=== PATIENT | male | born 1950 | race African-American/Black ===

== ENCOUNTER 2020-10-21 08:29 | Inpatient (IN) | payer MEDICARE, MEDICAID ==
[~2020-10-21] VITALS: Ht 185.4 cm; Wt 69.9 kg
[2020-10-21] MEDS ORDERED: SODIUM CHLORIDE 0.9% 1,000 ML IV ONE (08:45)
[2020-10-21 09:32] LABS: CHLORIDE 114 mEq/L (98-107)
[2020-10-21 09:33] LABS: BASOPHILS % 0.6 % (0.0-2.0); EOSINOPHILS % 1.3 % (0.0-5.0); HEMATOCRIT. 31.6 % (42.0-52.0); HEMOGLOBIN. 10.2 g/dL (14.0-18.0); LYMPHOCYTES % 7.1 % (20.0-50.0); MEAN CORPUSCULAR VOLUME 77.3 fL (80.0-94.0); MEAN PLATELET VOLUME 7.2 fl (7.4-10.4); MONOCYTES % 12.8 % (2.0-8.0); NEUTROPHILS % 78.2 % (40.0-76.0); PLATELET 216 x1000/uL (130-400); RED BLOOD CELL COUNT 4.08 mill/uL (4.7-6.1); RED CELL DISTRIBUTION WIDTH 19.3 % (11.6-14.6)
[2020-10-21 09:37] LABS: INR 1.3; PROTHROMBIN TIME 13.7 sec (9.6-11.0)
[2020-10-21] MEDS ORDERED: POTASSIUM CHLORIDE INJ 40 MEQ in DEXT 5% WATER 500 ML IV ONE (11:15)
[2020-10-21] MEDS ORDERED: DEXT 5%/0.9% NACL 1,000 ML IV SCH (18:45)
[2020-10-21] MEDS ORDERED: DEXTROSE 50% WATER 50ML SYRINGE IV PRN (18:45)
[2020-10-21] MEDS ORDERED: ONDANSETRON HCL 4MG/2ML INJ IV PRN (18:45)
[2020-10-21] MEDS ORDERED: PIPERACILLIN/TAZ 3.375G PREMIX 50 ML IV SCH (18:45)
[2020-10-21] MEDS: INSULIN LISPRO 100 UNITS/ML SUBCUT SCH (21:00)
[2020-10-21] MEDS: BLOOD SUGAR DIAGNOSTIC STRIP TEST SCH (21:16)
[2020-10-21 22:50] VITALS: BP 156/81
[2020-10-21] MEDS: PANTOPRAZOLE SODIUM 40 MG/VIAL IV SCH (23:25)
[2020-10-22] VITALS: BP 156/71
[2020-10-22 00:43] LABS: HEMATOCRIT. 33.3 % (42.0-52.0); HEMOGLOBIN. 10.4 g/dL (14.0-18.0); MEAN CORPUSCULAR HEMOGLOBIN 24.4 pg (28.0-32.0); MEAN CORPUSCULAR VOLUME 78.3 fL (80.0-94.0); MEAN PLATELET VOLUME 7.5 fl (7.4-10.4); PLATELET 232 x1000/uL (130-400); RED BLOOD CELL COUNT 4.25 mill/uL (4.7-6.1); RED CELL DISTRIBUTION WIDTH 19.4 % (11.6-14.6)
[2020-10-22 01:08] LABS: CHLORIDE 117 mEq/L (98-107)
[2020-10-22 04:00] VITALS: BP 165/74
[2020-10-22] MEDS: PIPERACILLIN/TAZOBACTAM 2.25 G in DEXTROSE 5% WATER 50 ML IV SCH ×4 (04:03→22:10)
[2020-10-22] MEDS: INSULIN LISPRO 100 UNITS/ML SUBCUT SCH ×4 (06:37→21:00)
[2020-10-22] MEDS: BLOOD SUGAR DIAGNOSTIC STRIP TEST SCH ×4 (06:37→21:00)
[2020-10-22 08:00] VITALS: BP 151/57
[2020-10-22] MEDS: PANTOPRAZOLE SODIUM 40 MG/VIAL IV SCH ×2 (08:53→22:10)
[2020-10-22] MEDS: ACETAMINOPHEN 325MG TABLET PO PRN (08:54)
[2020-10-22] MEDS ORDERED: PERMETHRIN 5% CREAM 60GM TOP ONE (09:00)
[2020-10-22 09:31] LABS: PLATELET ESTIMATE NORMAL
[2020-10-22 12:00] VITALS: BP 167/73
[2020-10-22] MEDS: METOCLOPRAMIDE HCL 10MG/2ML VIAL IV SCH ×2 (12:01→18:18)
[2020-10-22] MEDS: DEXTROSE 5% WATER 1,000 ML IV SCH (12:01)
[2020-10-22 16:00] VITALS: BP 156/72
[2020-10-22] MEDS: SODIUM HYPOCHLORITE 0.125% 473ML SOLUTION TOP SCH (18:18)
[2020-10-22 20:00] VITALS: BP 156/63
[2020-10-23] VITALS (7 sets, daily range): BP systolic 155–169; BP diastolic 59–85
[2020-10-23] MEDS: METOCLOPRAMIDE HCL 10MG/2ML VIAL IV SCH ×4 (00:04→18:06)
[2020-10-23] MEDS: PIPERACILLIN/TAZOBACTAM 2.25 G in DEXTROSE 5% WATER 50 ML IV SCH ×4 (04:07→22:38)
[2020-10-23] MEDS: BLOOD SUGAR DIAGNOSTIC STRIP TEST SCH ×4 (05:53→20:12)
[2020-10-23] MEDS: INSULIN LISPRO 100 UNITS/ML SUBCUT SCH ×4 (05:53→20:12)
[2020-10-23 06:30] LABS: BASOPHILS % 0.2 % (0.0-2.0); EOSINOPHILS % 9.5 % (0.0-5.0); HEMATOCRIT. 30.1 % (42.0-52.0); HEMOGLOBIN. 9.8 g/dL (14.0-18.0); LYMPHOCYTES % 9.9 % (20.0-50.0); MEAN CORPUSCULAR HEMOGLOBIN 25.2 pg (28.0-32.0); MEAN CORPUSCULAR VOLUME 77.2 fL (80.0-94.0); MEAN PLATELET VOLUME 7.2 fl (7.4-10.4); MONOCYTES % 8.6 % (2.0-8.0); NEUTROPHILS % 71.8 % (40.0-76.0); PLATELET 200 x1000/uL (130-400); RED CELL DISTRIBUTION WIDTH 18.8 % (11.6-14.6)
[2020-10-23 06:50] LABS: FERRITIN 313 ng/mL (22-322)
[2020-10-23 06:53] LABS: FOLIC ACID (FOLATE) SERUM >20 ng/mL ng/mL (>5.38)
[2020-10-23 07:03] LABS: VITAMIN B12 SERUM 1972 pg/mL (211-911)
[2020-10-23] MEDS: PANTOPRAZOLE SODIUM 40 MG/VIAL IV SCH ×2 (11:15→22:38)
[2020-10-23] MEDS: DEXTROSE 5% WATER 1,000 ML IV SCH (11:15)
[2020-10-23] MEDS: SODIUM HYPOCHLORITE 0.125% 473ML SOLUTION TOP SCH (11:16)
[2020-10-23] MEDS ORDERED: POTASSIUM CHLORIDE 20MEQ TABLET SR PO NR (12:30)
[2020-10-23] MEDS: AMLODIPINE 10MG TABLET PO SCH (13:11)
[2020-10-23] MEDS ORDERED: GUAIFENESIN-DM 200MG-20MG/10ML UDC PO PRN (19:15)
[2020-10-24] VITALS (7 sets, daily range): BP systolic 140–163; BP diastolic 47–65
[2020-10-24] MEDS: METOCLOPRAMIDE HCL 10MG/2ML VIAL IV SCH ×4 (00:28→16:04)
[2020-10-24] MEDS: SODIUM CHLORIDE 0.45% 1,000 ML IV SCH ×2 (00:29→16:09)
[2020-10-24] MEDS: PIPERACILLIN/TAZOBACTAM 2.25 G in DEXTROSE 5% WATER 50 ML IV SCH ×4 (05:25→22:00)
[2020-10-24] MEDS: DEXTROSE 5% WATER 1,000 ML IV SCH (05:25)
[2020-10-24] MEDS: INSULIN LISPRO 100 UNITS/ML SUBCUT SCH ×4 (07:10→22:00)
[2020-10-24] MEDS: BLOOD SUGAR DIAGNOSTIC STRIP TEST SCH ×4 (07:21→21:00)
[2020-10-24 07:42] LABS: BASOPHILS % 0.9 % (0.0-2.0); EOSINOPHILS % 8.6 % (0.0-5.0); HEMATOCRIT. 29.3 % (42.0-52.0); HEMOGLOBIN. 9.3 g/dL (14.0-18.0); MEAN CORPUSCULAR HEMOGLOBIN 24.7 pg (28.0-32.0); MEAN CORPUSCULAR VOLUME 77.8 fL (80.0-94.0); MEAN PLATELET VOLUME 7.8 fl (7.4-10.4); MONOCYTES % 8.7 % (2.0-8.0); NEUTROPHILS % 73.8 % (40.0-76.0); PLATELET 205 x1000/uL (130-400); RED BLOOD CELL COUNT 3.77 mill/uL (4.7-6.1); RED CELL DISTRIBUTION WIDTH 19.2 % (11.6-14.6)
[2020-10-24] MEDS: PANTOPRAZOLE SODIUM 40 MG/VIAL IV SCH ×2 (08:49→22:00)
[2020-10-24] MEDS: AMLODIPINE 10MG TABLET PO SCH (08:49)
[2020-10-24] MEDS: SODIUM HYPOCHLORITE 0.125% 473ML SOLUTION TOP SCH (08:49)
[2020-10-24] MEDS: POTASSIUM CHLORIDE 20MEQ TABLET SR PO SCH (09:54)
[2020-10-25] VITALS: BP 149/77
[2020-10-25] MEDS: METOCLOPRAMIDE HCL 10MG/2ML VIAL IV SCH ×4 (00:59→18:03)
[2020-10-25] MEDS: DEXTROSE 5% WATER 1,000 ML IV SCH ×2 (01:04→22:08)
[2020-10-25 04:00] VITALS: BP 123/69
[2020-10-25] MEDS: PIPERACILLIN/TAZOBACTAM 2.25 G in DEXTROSE 5% WATER 50 ML IV SCH ×4 (04:41→21:36)
[2020-10-25] MEDS: BLOOD SUGAR DIAGNOSTIC STRIP TEST SCH ×4 (06:00→21:24)
[2020-10-25] MEDS: INSULIN LISPRO 100 UNITS/ML SUBCUT SCH ×4 (07:10→21:55)
[2020-10-25 08:00] VITALS: BP 150/72
[2020-10-25] MEDS: POTASSIUM CHLORIDE 20MEQ TABLET SR PO SCH (09:02)
[2020-10-25] MEDS: AMLODIPINE 10MG TABLET PO SCH (09:03)
[2020-10-25] MEDS: SODIUM HYPOCHLORITE 0.125% 473ML SOLUTION TOP SCH (09:03)
[2020-10-25] MEDS: PANTOPRAZOLE SODIUM 40 MG/VIAL IV SCH ×2 (09:26→21:36)
[2020-10-25 12:00] VITALS: BP 155/59
[2020-10-25 16:00] VITALS: BP 160/63
[2020-10-25] MEDS: SODIUM CHLORIDE 0.45% 1,000 ML IV SCH (16:26)
[2020-10-25 20:00] VITALS: BP 149/43
[2020-10-26] VITALS: BP 128/53
[2020-10-26] MEDS: METOCLOPRAMIDE HCL 10MG/2ML VIAL IV SCH ×4 (00:29→17:35)
[2020-10-26] MEDS: PIPERACILLIN/TAZOBACTAM 2.25 G in DEXTROSE 5% WATER 50 ML IV SCH ×4 (03:39→21:53)
[2020-10-26 04:00] VITALS: BP 153/62
[2020-10-26 06:25] LABS: BASOPHILS % 0.2 % (0.0-2.0); EOSINOPHILS % 6.6 % (0.0-5.0); HEMATOCRIT. 29.1 % (42.0-52.0); HEMOGLOBIN. 9.2 g/dL (14.0-18.0); LYMPHOCYTES % 7.9 % (20.0-50.0); MEAN CORPUSCULAR HEMOGLOBIN 24.4 pg (28.0-32.0); MEAN CORPUSCULAR VOLUME 77.6 fL (80.0-94.0); MEAN PLATELET VOLUME 7.7 fl (7.4-10.4); MONOCYTES % 9.5 % (2.0-8.0); NEUTROPHILS % 75.8 % (40.0-76.0); PLATELET 218 x1000/uL (130-400); RED BLOOD CELL COUNT 3.75 mill/uL (4.7-6.1); RED CELL DISTRIBUTION WIDTH 20.1 % (11.6-14.6)
[2020-10-26] MEDS: ACETAMINOPHEN 325MG TABLET PO PRN (06:29)
[2020-10-26] MEDS: BLOOD SUGAR DIAGNOSTIC STRIP TEST SCH ×4 (06:53→21:53)
[2020-10-26] MEDS: INSULIN LISPRO 100 UNITS/ML SUBCUT SCH ×4 (06:54→22:17)
[2020-10-26] MEDS: PANTOPRAZOLE SODIUM 40 MG/VIAL IV SCH ×2 (08:44→21:53)
[2020-10-26] MEDS: AMLODIPINE 10MG TABLET PO SCH (08:44)
[2020-10-26] MEDS: POTASSIUM CHLORIDE 20MEQ TABLET SR PO SCH (08:44)
[2020-10-26] MEDS: SODIUM HYPOCHLORITE 0.125% 473ML SOLUTION TOP SCH (08:45)
[2020-10-26 12:00] VITALS: BP 149/58
[2020-10-26 16:00] VITALS: BP 150/55
[2020-10-26] MEDS: DEXTROSE 5% WATER 1,000 ML IV SCH (17:34)
[2020-10-26 20:00] VITALS: BP 142/68
[2020-10-26] MEDS: SODIUM CHLORIDE 0.45% 1,000 ML IV SCH (22:21)
[2020-10-27] VITALS: BP 139/62
[2020-10-27] MEDS: METOCLOPRAMIDE HCL 10MG/2ML VIAL IV SCH ×5 (00:05→23:14)
[2020-10-27] MEDS: PIPERACILLIN/TAZOBACTAM 2.25 G in DEXTROSE 5% WATER 50 ML IV SCH (03:35)
[2020-10-27 04:00] VITALS: BP 113/65
[2020-10-27] MEDS: INSULIN LISPRO 100 UNITS/ML SUBCUT SCH ×4 (06:03→21:00)
[2020-10-27] MEDS: BLOOD SUGAR DIAGNOSTIC STRIP TEST SCH ×4 (06:09→21:00)
[2020-10-27 07:02] LABS: BASOPHILS % 0.2 % (0.0-2.0); EOSINOPHILS % 6.6 % (0.0-5.0); HEMATOCRIT. 30.3 % (42.0-52.0); HEMOGLOBIN. 9.8 g/dL (14.0-18.0); MEAN CORPUSCULAR HEMOGLOBIN 25.1 pg (28.0-32.0); MEAN CORPUSCULAR VOLUME 77.4 fL (80.0-94.0); MEAN PLATELET VOLUME 7.8 fl (7.4-10.4); MONOCYTES % 9.6 % (2.0-8.0); NEUTROPHILS % 75.6 % (40.0-76.0); PLATELET 226 x1000/uL (130-400); RED BLOOD CELL COUNT 3.91 mill/uL (4.7-6.1); RED CELL DISTRIBUTION WIDTH 19.8 % (11.6-14.6)
[2020-10-27 08:00] VITALS: BP 144/61
[2020-10-27] MEDS: AMLODIPINE 10MG TABLET PO SCH (09:19)
[2020-10-27] MEDS: PANTOPRAZOLE SODIUM 40 MG/VIAL IV SCH ×2 (09:19→22:45)
[2020-10-27] MEDS: POTASSIUM CHLORIDE 20MEQ TABLET SR PO SCH (09:19)
[2020-10-27] MEDS: SODIUM HYPOCHLORITE 0.125% 473ML SOLUTION TOP SCH (09:20)
[2020-10-27] MEDS: DEXTROSE 5% WATER 1,000 ML IV SCH (11:51)
[2020-10-27 12:00] VITALS: BP 147/59
[2020-10-27 16:00] VITALS: BP 140/50
[2020-10-27 20:00] VITALS: BP 151/65
[2020-10-27] MEDS ORDERED: POTASSIUM CHLORIDE INJ 40 MEQ in DEXT 5% WATER 250 ML IV NR (23:00)
[2020-10-28] VITALS: BP 154/66
[2020-10-28 04:00] VITALS: BP 170/69
[2020-10-28 05:43] LABS: BASOPHILS % 0.3 % (0.0-2.0); EOSINOPHILS % 7.3 % (0.0-5.0); HEMATOCRIT. 28.5 % (42.0-52.0); HEMOGLOBIN. 9.3 g/dL (14.0-18.0); LYMPHOCYTES % 7.7 % (20.0-50.0); MEAN CORPUSCULAR HEMOGLOBIN 25.2 pg (28.0-32.0); MEAN CORPUSCULAR VOLUME 77.4 fL (80.0-94.0); MEAN PLATELET VOLUME 7.9 fl (7.4-10.4); MONOCYTES % 8.8 % (2.0-8.0); NEUTROPHILS % 75.9 % (40.0-76.0); PLATELET 231 x1000/uL (130-400); RED BLOOD CELL COUNT 3.68 mill/uL (4.7-6.1); RED CELL DISTRIBUTION WIDTH 20.1 % (11.6-14.6)
[2020-10-28] MEDS: BLOOD SUGAR DIAGNOSTIC STRIP TEST SCH ×4 (06:27→21:00)
[2020-10-28] MEDS: INSULIN LISPRO 100 UNITS/ML SUBCUT SCH ×4 (06:28→21:00)
[2020-10-28] MEDS ORDERED: INSULIN REGULAR (HUMULIN R) 300UNITS/3ML VIAL SUBCUT ONE (06:30)
[2020-10-28] MEDS ORDERED: DEXTROSE 50% WATER 50ML SYRINGE IV SCH (06:45)
[2020-10-28] MEDS ORDERED: INSULIN REGULAR (HUMULIN R) UD 100 UNITS/ML SYR IV SCH (07:00)
[2020-10-28 07:46] LABS: HEMATOCRIT. 29.8 % (42.0-52.0); HEMOGLOBIN. 9.6 g/dL (14.0-18.0); MEAN CORPUSCULAR HEMOGLOBIN 24.9 pg (28.0-32.0); MEAN CORPUSCULAR VOLUME 77.3 fL (80.0-94.0); MEAN PLATELET VOLUME 7.3 fl (7.4-10.4); PLATELET 226 x1000/uL (130-400); RED BLOOD CELL COUNT 3.86 mill/uL (4.7-6.1); RED CELL DISTRIBUTION WIDTH 20.6 % (11.6-14.6)
[2020-10-28 07:49] LABS: CHLORIDE 114 mEq/L (98-107)
[2020-10-28 08:00] VITALS: BP 161/61
[2020-10-28] MEDS ORDERED: SODIUM POLYSTYRENE SULFONATE 15 G/60 ML BOT PO NR (08:00)
[2020-10-28] MEDS ORDERED: SODIUM POLYSTYRENE SULFONATE 15 G/60 ML BOT PO SCH (08:00)
[2020-10-28] MEDS ORDERED: SODIUM POLYSTYRENE SULFONATE 15 G/60 ML BOT PR SCH (08:00)
[2020-10-28] MEDS: AMLODIPINE 10MG TABLET PO SCH ×2 (09:00→12:23)
[2020-10-28] MEDS ORDERED: KCL 20MEQ/100ML PREMIX 100 ML IV ONE (09:15)
[2020-10-28] MEDS ORDERED: HYDRALAZINE 20MG/ML VIAL IV PRN (09:15)
[2020-10-28] MEDS: PANTOPRAZOLE SODIUM 40 MG/VIAL IV SCH ×2 (09:16→23:33)
[2020-10-28] MEDS: SODIUM HYPOCHLORITE 0.125% 473ML SOLUTION TOP SCH (09:17)
[2020-10-28] MEDS: DEXTROSE 5% WATER 1,000 ML IV SCH (09:18)
[2020-10-28 09:58] LABS: PLATELET ESTIMATE NORMAL
[2020-10-28] MEDS ORDERED: KCL 20MEQ/100ML PREMIX 100 ML IV NR (11:00)
[2020-10-28 12:00] VITALS: BP 160/64
[2020-10-28 16:00] VITALS: BP 125/92
[2020-10-28] MEDS: ACETAMINOPHEN 325MG TABLET PO PRN (16:18)
[2020-10-28 20:00] VITALS: BP 155/71
[2020-10-28] MEDS: METOCLOPRAMIDE HCL 10MG/2ML VIAL IV SCH (23:33)
[2020-10-28] MEDS: HYDRALAZINE HCL 50MG TABLET PO SCH (23:36)
[2020-10-29] VITALS: BP 124/64
[2020-10-29] MEDS: METOCLOPRAMIDE HCL 10MG/2ML VIAL IV SCH ×5 (02:34→17:12)
[2020-10-29 04:00] VITALS: BP 160/73
[2020-10-29] MEDS: DEXTROSE 5% WATER 1,000 ML IV SCH (04:00)
[2020-10-29 05:52] LABS: BASOPHILS % 0.6 % (0.0-2.0); EOSINOPHILS % 5.3 % (0.0-5.0); HEMATOCRIT. 34.1 % (42.0-52.0); LYMPHOCYTES % 8.3 % (20.0-50.0); MEAN CORPUSCULAR HEMOGLOBIN 24.8 pg (28.0-32.0); MEAN CORPUSCULAR VOLUME 77.1 fL (80.0-94.0); MEAN PLATELET VOLUME 7.9 fl (7.4-10.4); MONOCYTES % 9.2 % (2.0-8.0); NEUTROPHILS % 76.6 % (40.0-76.0); PLATELET 282 x1000/uL (130-400); RED BLOOD CELL COUNT 4.42 mill/uL (4.7-6.1); RED CELL DISTRIBUTION WIDTH 20.8 % (11.6-14.6)
[2020-10-29] MEDS: INSULIN LISPRO 100 UNITS/ML SUBCUT SCH ×4 (06:16→21:00)
[2020-10-29] MEDS: BLOOD SUGAR DIAGNOSTIC STRIP TEST SCH ×4 (06:16→20:55)
[2020-10-29 08:00] VITALS: BP 172/83
[2020-10-29] MEDS: PANTOPRAZOLE SODIUM 40 MG/VIAL IV SCH ×2 (09:00→20:55)
[2020-10-29] MEDS: ZINC SULFATE 220 MG ( 50 ) CAPSULE PO SCH (09:10)
[2020-10-29] MEDS: ASCORBIC ACID 500 MG TABLET PO SCH (09:10)
[2020-10-29] MEDS: HYDRALAZINE HCL 50MG TABLET PO SCH ×2 (09:10→20:55)
[2020-10-29] MEDS: SODIUM HYPOCHLORITE 0.125% 473ML SOLUTION TOP SCH (09:11)
[2020-10-29] MEDS: AMLODIPINE 10MG TABLET PO SCH (09:11)
[2020-10-29 12:00] VITALS: BP 110/59
[2020-10-29 16:00] VITALS: BP 126/57
[2020-10-29 20:00] VITALS: BP 137/67
[2020-10-29 20:40] LABS: CLARITY URINE CLEAR (CLEAR); COLOR URINE YELLOW (YELLOW); KETONES URINE NEGATIVE (NEGATIVE); LEUKOCYTE ESTERASE URINE NEGATIVE (NEGATIVE); NITRITE URINE NEGATIVE (NEGATIVE); OCCULT BLOOD URINE 2+ (NEGATIVE); PH URINE 7.5 (4.5-8.0); PROTEIN URINE 1+ (NEGATIVE); UROBILINOGEN URINE 0.2 E.U./dL (0.2-1.0)
[2020-10-30] VITALS: BP 132/54
[2020-10-30] MEDS: METOCLOPRAMIDE HCL 10MG/2ML VIAL IV SCH ×4 (00:34→18:19)
[2020-10-30] MEDS: DEXTROSE 5% WATER 1,000 ML IV SCH ×2 (00:34→22:16)
[2020-10-30 04:00] VITALS: BP 111/48
[2020-10-30] MEDS: BLOOD SUGAR DIAGNOSTIC STRIP TEST SCH ×4 (06:16→21:00)
[2020-10-30] MEDS: INSULIN LISPRO 100 UNITS/ML SUBCUT SCH ×4 (06:17→21:00)
[2020-10-30 06:58] LABS: BASOPHILS % 1.8 % (0.0-2.0); EOSINOPHILS % 7.3 % (0.0-5.0); HEMATOCRIT. 28.7 % (42.0-52.0); HEMOGLOBIN. 9.4 g/dL (14.0-18.0); MEAN CORPUSCULAR HEMOGLOBIN 25.3 pg (28.0-32.0); MEAN CORPUSCULAR VOLUME 76.9 fL (80.0-94.0); MONOCYTES % 7.1 % (2.0-8.0); NEUTROPHILS % 72.8 % (40.0-76.0); RED BLOOD CELL COUNT 3.73 mill/uL (4.7-6.1); RED CELL DISTRIBUTION WIDTH 21.2 % (11.6-14.6)
[2020-10-30] MEDS: PANTOPRAZOLE SODIUM 40 MG/VIAL IV SCH ×2 (09:55→22:16)
[2020-10-30] MEDS: HYDRALAZINE HCL 50MG TABLET PO SCH ×2 (09:56→22:16)
[2020-10-30] MEDS: AMLODIPINE 10MG TABLET PO SCH (09:56)
[2020-10-30] MEDS: ZINC SULFATE 220 MG ( 50 ) CAPSULE PO SCH (09:56)
[2020-10-30] MEDS: SODIUM HYPOCHLORITE 0.125% 473ML SOLUTION TOP SCH (09:58)
[2020-10-30] MEDS: ASCORBIC ACID 500 MG TABLET PO SCH (09:58)
[2020-10-30 12:00] VITALS: BP 133/70
[2020-10-30] MEDS ORDERED: PERMETHRIN 5% CREAM 60GM TOP NR (17:00)
[2020-10-30 17:39] LABS: MEAN PLATELET VOLUME 7.8 fl (7.4-10.4); PLATELET 273 x1000/uL (130-400)
[2020-10-30 20:00] VITALS: BP 136/64
[2020-10-31] VITALS: BP 142/65
[2020-10-31] MEDS: METOCLOPRAMIDE HCL 10MG/2ML VIAL IV SCH ×5 (00:11→23:33)
[2020-10-31 04:00] VITALS: BP 153/53
[2020-10-31] MEDS: BLOOD SUGAR DIAGNOSTIC STRIP TEST SCH ×4 (06:02→21:07)
[2020-10-31] MEDS: INSULIN LISPRO 100 UNITS/ML SUBCUT SCH ×4 (07:10→21:00)
[2020-10-31 08:00] VITALS: BP 146/60
[2020-10-31] MEDS: ASCORBIC ACID 500 MG TABLET PO SCH (09:20)
[2020-10-31] MEDS: ZINC SULFATE 220 MG ( 50 ) CAPSULE PO SCH (09:20)
[2020-10-31] MEDS: HYDRALAZINE HCL 50MG TABLET PO SCH ×2 (09:21→21:07)
[2020-10-31] MEDS: PANTOPRAZOLE SODIUM 40 MG/VIAL IV SCH ×2 (09:22→21:07)
[2020-10-31] MEDS: AMLODIPINE 10MG TABLET PO SCH (09:22)
[2020-10-31] MEDS: SODIUM HYPOCHLORITE 0.125% 473ML SOLUTION TOP SCH (09:23)
[2020-10-31 12:00] VITALS: BP 146/57
[2020-10-31 16:00] VITALS: BP 123/58
[2020-10-31] MEDS: DEXTROSE 5% WATER 1,000 ML IV SCH (17:03)
[2020-10-31 20:00] VITALS: BP 144/56
[2020-11-01] VITALS: BP 139/58
[2020-11-01 04:00] VITALS: BP 144/58
[2020-11-01] MEDS: BLOOD SUGAR DIAGNOSTIC STRIP TEST SCH ×4 (06:34→21:27)
[2020-11-01] MEDS: METOCLOPRAMIDE HCL 10MG/2ML VIAL IV SCH ×4 (06:34→23:04)
[2020-11-01] MEDS: INSULIN LISPRO 100 UNITS/ML SUBCUT SCH ×4 (06:52→21:00)
[2020-11-01] MEDS: PANTOPRAZOLE SODIUM 40 MG/VIAL IV SCH ×2 (12:20→21:12)
[2020-11-01] MEDS: ZINC SULFATE 220 MG ( 50 ) CAPSULE PO SCH (12:21)
[2020-11-01] MEDS: ASCORBIC ACID 500 MG TABLET PO SCH (12:22)
[2020-11-01] MEDS: HYDRALAZINE HCL 50MG TABLET PO SCH ×2 (12:22→21:12)
[2020-11-01] MEDS: AMLODIPINE 10MG TABLET PO SCH (12:24)
[2020-11-01 20:00] VITALS: BP 120/47
[2020-11-01] MEDS: SODIUM HYPOCHLORITE 0.125% 473ML SOLUTION TOP SCH (20:17)
[2020-11-01] MEDS: DEXTROSE 5% WATER 1,000 ML IV SCH (23:04)
[2020-11-02] VITALS: BP 122/50
[2020-11-02 04:00] VITALS: BP 131/57
[2020-11-02] MEDS: BLOOD SUGAR DIAGNOSTIC STRIP TEST SCH ×4 (06:06→21:00)
[2020-11-02] MEDS: INSULIN LISPRO 100 UNITS/ML SUBCUT SCH ×4 (06:06→21:00)
[2020-11-02] MEDS: METOCLOPRAMIDE HCL 10MG/2ML VIAL IV SCH ×4 (06:08→23:45)
[2020-11-02 08:00] VITALS: BP 153/62
[2020-11-02] MEDS: PANTOPRAZOLE SODIUM 40 MG/VIAL IV SCH ×2 (08:38→23:40)
[2020-11-02] MEDS: ZINC SULFATE 220 MG ( 50 ) CAPSULE PO SCH (08:39)
[2020-11-02] MEDS: ASCORBIC ACID 500 MG TABLET PO SCH (08:39)
[2020-11-02] MEDS: HYDRALAZINE HCL 50MG TABLET PO SCH ×2 (08:40→21:00)
[2020-11-02] MEDS: AMLODIPINE 10MG TABLET PO SCH (08:40)
[2020-11-02] MEDS: SODIUM HYPOCHLORITE 0.125% 473ML SOLUTION TOP SCH (08:41)
[2020-11-02] MEDS: DEXTROSE 5% WATER 1,000 ML IV SCH (08:42)
[2020-11-02 12:00] VITALS: BP 104/65
[2020-11-02 16:00] VITALS: BP 136/44
[2020-11-02 17:37] LABS: BASOPHILS % 0.2 % (0.0-2.0); EOSINOPHILS % 8.6 % (0.0-5.0); HEMATOCRIT. 27.9 % (42.0-52.0); HEMOGLOBIN. 9.1 g/dL (14.0-18.0); LYMPHOCYTES % 9.7 % (20.0-50.0); MEAN CORPUSCULAR HEMOGLOBIN 25.4 pg (28.0-32.0); MEAN CORPUSCULAR VOLUME 78.4 fL (80.0-94.0); MEAN PLATELET VOLUME 7.3 fl (7.4-10.4); NEUTROPHILS % 69.5 % (40.0-76.0); PLATELET 271 x1000/uL (130-400); RED BLOOD CELL COUNT 3.57 mill/uL (4.7-6.1); RED CELL DISTRIBUTION WIDTH 22.3 % (11.6-14.6)
[2020-11-03 04:00] VITALS: BP 115/46
[2020-11-03] MEDS: DEXTROSE 5% WATER 1,000 ML IV SCH (04:00)
[2020-11-03] MEDS: METOCLOPRAMIDE HCL 10MG/2ML VIAL IV SCH ×3 (06:00→17:42)
[2020-11-03] MEDS: BLOOD SUGAR DIAGNOSTIC STRIP TEST SCH ×4 (06:40→21:00)
[2020-11-03] MEDS: INSULIN LISPRO 100 UNITS/ML SUBCUT SCH ×4 (07:10→20:35)
[2020-11-03 08:00] VITALS: BP 159/54
[2020-11-03] MEDS: ZINC SULFATE 220 MG ( 50 ) CAPSULE PO SCH (09:07)
[2020-11-03] MEDS: AMLODIPINE 10MG TABLET PO SCH (09:07)
[2020-11-03] MEDS: ASCORBIC ACID 500 MG TABLET PO SCH (09:07)
[2020-11-03] MEDS: SODIUM HYPOCHLORITE 0.125% 473ML SOLUTION TOP SCH (09:08)
[2020-11-03] MEDS: HYDRALAZINE HCL 50MG TABLET PO SCH ×2 (09:08→22:33)
[2020-11-03] MEDS: PANTOPRAZOLE SODIUM 40 MG/VIAL IV SCH ×2 (09:08→22:33)
[2020-11-03 12:00] VITALS: BP 142/47
[2020-11-03 16:00] VITALS: BP 130/45
[2020-11-03 20:00] VITALS: BP 137/59
[2020-11-04] VITALS: BP 133/51
[2020-11-04] MEDS: METOCLOPRAMIDE HCL 10MG/2ML VIAL IV SCH ×5 (00:45→23:23)
[2020-11-04 04:00] VITALS: BP 136/44
[2020-11-04] MEDS: BLOOD SUGAR DIAGNOSTIC STRIP TEST SCH ×4 (06:52→21:00)
[2020-11-04] MEDS: INSULIN LISPRO 100 UNITS/ML SUBCUT SCH ×4 (06:52→21:00)
[2020-11-04 08:00] VITALS: BP 148/65
[2020-11-04] MEDS: PANTOPRAZOLE SODIUM 40 MG/VIAL IV SCH ×2 (08:35→23:23)
[2020-11-04] MEDS: AMLODIPINE 10MG TABLET PO SCH (08:35)
[2020-11-04] MEDS: ASCORBIC ACID 500 MG TABLET PO SCH (08:35)
[2020-11-04] MEDS: HYDRALAZINE HCL 50MG TABLET PO SCH ×2 (08:35→23:24)
[2020-11-04] MEDS: ZINC SULFATE 220 MG ( 50 ) CAPSULE PO SCH (08:35)
[2020-11-04] MEDS: SODIUM HYPOCHLORITE 0.125% 473ML SOLUTION TOP SCH (08:36)
[2020-11-04 12:00] VITALS: BP 116/46
[2020-11-04 20:00] VITALS: BP 126/60
[2020-11-04] MEDS: DEXTROSE 5% WATER 1,000 ML IV SCH ×2 (23:24)
[2020-11-05] VITALS: BP 135/51
[2020-11-05 04:00] VITALS: BP 127/86
[2020-11-05] MEDS: METOCLOPRAMIDE HCL 10MG/2ML VIAL IV SCH ×2 (06:52→13:20)
[2020-11-05] MEDS: BLOOD SUGAR DIAGNOSTIC STRIP TEST SCH ×2 (06:54→12:23)
[2020-11-05] MEDS: INSULIN LISPRO 100 UNITS/ML SUBCUT SCH ×2 (07:50→12:23)
[2020-11-05 08:00] VITALS: BP 126/64
[2020-11-05] MEDS: AMLODIPINE 10MG TABLET PO SCH (09:16)
[2020-11-05] MEDS: ZINC SULFATE 220 MG ( 50 ) CAPSULE PO SCH (09:16)
[2020-11-05] MEDS: ASCORBIC ACID 500 MG TABLET PO SCH (09:16)
[2020-11-05] MEDS: SODIUM HYPOCHLORITE 0.125% 473ML SOLUTION TOP SCH (09:17)
[2020-11-05] MEDS: PANTOPRAZOLE SODIUM 40 MG/VIAL IV SCH (09:17)
[2020-11-05] MEDS: HYDRALAZINE HCL 50MG TABLET PO SCH (09:17)
[2020-11-05 12:00] VITALS: BP 104/56
[2020-11-05 16:00] VITALS: BP 134/56
[2020-11-05 16:05] VITALS: BP 134/56
[2020-11-05] MEDS: DEXTROSE 5% WATER 1,000 ML IV SCH (16:14)
== END 2020-11-05 17:07 | DRG 981 ==
LOC: ER 08:29 → 7EST 13:09 → ENRESERV 18:14 → 6EST 11-04 12:51
PROVIDERS: ADMIT Internal Medicine Nephrology; ATTEND Internal Medicine Nephrology
PROC: 0KBP0ZZ Excision of Left Hip Muscle, Open Approach (ICD-10-PCS; principal; 2020-10-25)
DX: K29.01 Acute gastritis with bleeding (principal); A41.9 Sepsis, unspecified organism; L89.893 Pressure ulcer of other site, stage 3; L89.224 Pressure ulcer of left hip, stage 4; E43 Unspecified severe protein-calorie malnutrition; J96.00 Acute respiratory failure, unspecified whether with hypoxia or hypercapnia; J18.9 Pneumonia, unspecified organism; G93.40 Encephalopathy, unspecified; I13.0 Hypertensive heart and chronic kidney disease with heart failure and stage 1 through stage 4 chronic kidney disease, or unspecified chronic kidney disease; N17.9 Acute kidney failure, unspecified; K94.23 Gastrostomy malfunction; D64.9 Anemia, unspecified; E11.22 Type 2 diabetes mellitus with diabetic chronic kidney disease; E87.6 Hypokalemia; E87.8 Other disorders of electrolyte and fluid balance, not elsewhere classified; F03.90 Unspecified dementia, unspecified severity, without behavioral disturbance, psychotic disturbance, mood disturbance, and anxiety; I50.9 Heart failure, unspecified; N18.9 Chronic kidney disease, unspecified; R13.10 Dysphagia, unspecified; J44.9 Chronic obstructive pulmonary disease, unspecified; E88.09 Other disorders of plasma-protein metabolism, not elsewhere classified; Z86.73 Personal history of transient ischemic attack (TIA), and cerebral infarction without residual deficits; Z87.01 Personal history of pneumonia (recurrent); Z68.20 Body mass index [BMI] 20.0-20.9, adult
CPT/HCPCS: 36415; 71045; 71250; 74176; 80048; 80053; 81003; 82040; 82607; 82728; 82746; 82962; 83540; 83550; 84134; 84145; 85025; 85044; 86850; 86900; 93005; 93970; 99291; C1893; C9113; J0360; J1815; J2543; J2765; J3480; J7030; J7042; J7060; J7070; A4315

== ENCOUNTER 2020-12-07 14:11 | Inpatient (IN) | payer MEDICARE, MEDICAID ==
[~2020-12-07] VITALS: Ht 167.6 cm; Wt 27.7 kg
[2020-12-07] MEDS ORDERED: PANTOPRAZOLE SODIUM 40 MG/VIAL IV STA (14:28)
[2020-12-07 15:19] LABS: BG BASE EXCESS -6.8 mmol/L (-2.0-2.0); BG DEOXYHEMOGLOBIN 4.4 % (0.0-5.0); BG FRACTION INSPIRED OXYGEN 21; BG HCO3 ACT 17.6 mmol/L (22.0-26.0); BG METHEMOGLOBIN 0.3 % (0.0-1.5); BG OXYGEN SATURATION 95.6 % (92.0-98.5); BG OXYHEMOGLOBIN 95.3 % (94.0-97.0); BG PH 7.373 (7.350-7.450); BG PO2 80.4 mmHg (75.0-100.0); BG SAMPLE SITE LEFT RADIAL; BG TOTAL HEMOGLOBIN 8.1 g/dL (12.0-18.0); BG VENT MODE ROOM AIR
[2020-12-07 15:53] LABS: BASOPHILS % 0.5 % (0.0-2.0); EOSINOPHILS % 8.9 % (0.0-5.0); HEMATOCRIT. 24.1 % (42.0-52.0); HEMOGLOBIN. 7.8 g/dL (14.0-18.0); LYMPHOCYTES % 11.4 % (20.0-50.0); MEAN CORPUSCULAR HEMOGLOBIN 25.1 pg (28.0-32.0); MEAN PLATELET VOLUME 7.2 fl (7.4-10.4); MONOCYTES % 9.5 % (2.0-8.0); NEUTROPHILS % 69.7 % (40.0-76.0); PLATELET 488 x1000/uL (130-400); RED BLOOD CELL COUNT 3.09 mill/uL (4.7-6.1); RED CELL DISTRIBUTION WIDTH 21.2 % (11.6-14.6)
[2020-12-07 15:58] LABS: CHLORIDE 100 mEq/L (98-107)
[2020-12-07 16:00] LABS: INR 1.1; PROTHROMBIN TIME 11.5 sec (9.6-11.0)
[2020-12-07] MEDS ORDERED: SODIUM POLYSTYRENE SULFONATE 15 G/60 ML BOT GT ONE (16:30)
[2020-12-07] MEDS ORDERED: ALBUTEROL (0.083%) 2.5MG/3ML NEB HHN ONE ×2 (16:30→18:45)
[2020-12-07] MEDS ORDERED: INSULIN REGULAR (HUMULIN R) 300UNITS/3ML VIAL IV ONE ×2 (16:30→18:45)
[2020-12-07] MEDS ORDERED: SODIUM BICARBONATE 8.4% 1 MEQ/ML 50ML SYR IV ONE (16:30)
[2020-12-07] MEDS ORDERED: CALCIUM CHLORIDE 1GM/10ML SYR IV ONE (16:30)
[2020-12-07] MEDS ORDERED: PIPERACILLIN/TAZ 3.375G PREMIX 50 ML IV ONE (16:30)
[2020-12-07] MEDS ORDERED: DEXTROSE 50% WATER 50ML SYRINGE IV ONE ×2 (16:30→18:45)
[2020-12-07] MEDS ORDERED: LEVOFLOXACIN 250MG PREMIX 50 ML IV ONE (16:30)
[2020-12-07] MEDS ORDERED: SODIUM CHLORIDE 0.9% 500 ML IV ONE (16:45)
[2020-12-07] MEDS ORDERED: LACTATED RINGERS 1,000 ML IV STA (16:48)
[2020-12-07] MEDS ORDERED: FUROSEMIDE 40MG/4ML VIAL IVP ONE (17:00)
[2020-12-07 17:09] LABS: CLARITY URINE CLEAR (CLEAR); COLOR URINE YELLOW (YELLOW); KETONES URINE NEGATIVE (NEGATIVE); LEUKOCYTE ESTERASE URINE 2+ (NEGATIVE); NITRITE URINE NEGATIVE (NEGATIVE); OCCULT BLOOD URINE TRACE (NEGATIVE); PH URINE >=9.0 (4.5-8.0); PROTEIN URINE 1+ (NEGATIVE); UROBILINOGEN URINE 0.2 E.U./dL (0.2-1.0)
[2020-12-07] MEDS ORDERED: NOREPINEPHRINE 8MG/250ML PMX 250 ML IV PRN (18:30)
[2020-12-07] MEDS ORDERED: SODIUM POLYSTYRENE SULFONATE 15 G/60 ML BOT PO ONE (19:30)
[2020-12-07] MEDS ORDERED: ACETAMINOPHEN 325MG TABLET PO PRN (20:30)
[2020-12-07] MEDS ORDERED: ONDANSETRON HCL 4MG/2ML INJ IV PRN (20:30)
[2020-12-07] MEDS ORDERED: ACETAMINOPHEN 650MG/20.3ML UDC GT PRN (20:30)
[2020-12-07] MEDS ORDERED: MORPHINE SULFATE 2 MG/ML CPJ (NOT FOR IM USE) IV PRN (20:30)
[2020-12-07] MEDS ORDERED: SODIUM POLYSTYRENE SULFONATE 15 G/60 ML BOT PO NR (20:30)
[2020-12-07] MEDS ORDERED: HYDROCODONE/ACETAMINOPHEN 5/325MG TABLET PO PRN (20:30)
[2020-12-07] MEDS ORDERED: LORAZEPAM 2MG/ML CPJ IV PRN (20:30)
[2020-12-07] MEDS ORDERED: SODIUM CHLORIDE 0.9% 1,000 ML IV ONE (21:00)
[2020-12-07] MEDS: THIAMINE HCL 100MG TABLET PO SCH (21:09)
[2020-12-07 21:24] LABS: BASOPHILS % 0.5 % (0.0-2.0); EOSINOPHILS % 5.5 % (0.0-5.0); HEMATOCRIT. 26.2 % (42.0-52.0); HEMOGLOBIN. 8.7 g/dL (14.0-18.0); LYMPHOCYTES % 10.9 % (20.0-50.0); MEAN CORPUSCULAR HEMOGLOBIN 25.4 pg (28.0-32.0); MEAN CORPUSCULAR VOLUME 76.3 fL (80.0-94.0); MEAN PLATELET VOLUME 7.1 fl (7.4-10.4); MONOCYTES % 12.9 % (2.0-8.0); NEUTROPHILS % 70.2 % (40.0-76.0); PLATELET 496 x1000/uL (130-400); RED BLOOD CELL COUNT 3.43 mill/uL (4.7-6.1); RED CELL DISTRIBUTION WIDTH 21.2 % (11.6-14.6)
[2020-12-08] MEDS: SODIUM CHLORIDE 0.9% 1,000 ML IV SCH ×2 (04:35→16:21)
[2020-12-08 05:12] LABS: PHOSPHORUS 5.8 mg/dL (2.5-4.9)
[2020-12-08 05:19] LABS: BASOPHILS % 0.6 % (0.0-2.0); EOSINOPHILS % 6.4 % (0.0-5.0); HEMATOCRIT. 27.2 % (42.0-52.0); HEMOGLOBIN. 8.8 g/dL (14.0-18.0); LYMPHOCYTES % 10.1 % (20.0-50.0); MEAN CORPUSCULAR HEMOGLOBIN 25.4 pg (28.0-32.0); MEAN CORPUSCULAR VOLUME 78.5 fL (80.0-94.0); MEAN PLATELET VOLUME 7.5 fl (7.4-10.4); NEUTROPHILS % 72.9 % (40.0-76.0); PLATELET 475 x1000/uL (130-400); RED BLOOD CELL COUNT 3.46 mill/uL (4.7-6.1)
[2020-12-08] MEDS: THIAMINE HCL 100MG TABLET PO SCH (09:00)
[2020-12-08] MEDS: ENOXAPARIN 30MG/0.3ML SYR SUBCUT SCH (11:23)
[2020-12-08] MEDS ORDERED: SODIUM POLYSTYRENE SULFONATE 15 G/60 ML BOT PO SCH (14:15)
[2020-12-08] MEDS ORDERED: CEFTRIAXONE 1 G PREMIX 50 ML IV SCH (15:00)
[2020-12-08] MEDS ORDERED: CLONIDINE 0.1MG TABLET PO PRN (19:15)
[2020-12-08] MEDS ORDERED: DEXTROSE 50% WATER 50ML SYRINGE IV PRN (19:15)
[2020-12-08] MEDS ORDERED: DOCUSATE SODIUM 100MG CAPSULE PO PRN (19:15)
[2020-12-08] MEDS ORDERED: MAGNESIUM/ALUMINUM HYDROXIDE/SIMETHICONE 30ML UDC PO PRN (19:15)
[2020-12-08 22:45] LABS: CLARITY URINE CLEAR (CLEAR); COLOR URINE YELLOW (YELLOW); KETONES URINE NEGATIVE (NEGATIVE); LEUKOCYTE ESTERASE URINE TRACE (NEGATIVE); NITRITE URINE NEGATIVE (NEGATIVE); OCCULT BLOOD URINE NEGATIVE (NEGATIVE); PH URINE 8.5 (4.5-8.0); PROTEIN URINE 1+ (NEGATIVE); SPECIFIC GRAVITY URINE 1.009 (1.005-1.030); UROBILINOGEN URINE 0.2 E.U./dL (0.2-1.0)
[2020-12-08 23:55] LABS: INR 1.2; PARTIAL THROMBOPLASTIN TIME 34.5 sec (23.4-31.0); PROTHROMBIN TIME 12.4 sec (9.6-11.0)
[2020-12-09] MEDS: SODIUM CHLORIDE 0.9% 1,000 ML IV SCH ×2 (02:22→10:35)
[2020-12-09 05:00] VITALS: BP 150/67
[2020-12-09 08:00] VITALS: BP 157/78
[2020-12-09] MEDS ORDERED: PANTOPRAZOLE SODIUM 40 MG/VIAL IV SCH (09:00)
[2020-12-09] MEDS: THIAMINE HCL 100MG TABLET PO SCH (10:33)
[2020-12-09] MEDS: ENOXAPARIN 30MG/0.3ML SYR SUBCUT SCH (10:33)
[2020-12-09 10:43] LABS: BASOPHILS % 0.6 % (0.0-2.0); EOSINOPHILS % 7.6 % (0.0-5.0); HEMATOCRIT. 23.4 % (42.0-52.0); HEMOGLOBIN. 7.6 g/dL (14.0-18.0); LYMPHOCYTES % 9.9 % (20.0-50.0); MEAN CORPUSCULAR HEMOGLOBIN 25.6 pg (28.0-32.0); MEAN CORPUSCULAR VOLUME 78.6 fL (80.0-94.0); MONOCYTES % 7.4 % (2.0-8.0); NEUTROPHILS % 74.5 % (40.0-76.0); PLATELET 483 x1000/uL (130-400); RED BLOOD CELL COUNT 2.97 mill/uL (4.7-6.1); RED CELL DISTRIBUTION WIDTH 20.7 % (11.6-14.6)
[2020-12-09 12:00] VITALS: BP 160/71
[2020-12-09 12:23] LABS: CHLORIDE 109 mEq/L (98-107)
[2020-12-09 12:31] VITALS: BP 157/78
[2020-12-09 12:31] LABS: PHOSPHORUS 5.8 mg/dL (2.5-4.9)
[2020-12-09] MEDS ORDERED: CEFTRIAXONE 1,000 MG in DEXTROSE 5% WATER 50 ML IV SCH (14:00)
[2020-12-09 15:54] VITALS: BP 142/75
[2020-12-09 16:00] VITALS: BP 109/73
== END 2020-12-09 17:08 | DRG 393 ==
LOC: ER 14:11 → MICUSO 16:18 → EDBEDREQ 16:29 → EDBEDREQSVC 16:29 → ENRESERV 17:02 → CANRESERV 17:02 → EDBEDREQSVC 18:23 → EDBEDREQTM 12-09 02:40 → EDBEDREQSVC 12-09 02:40 → EDBEDREQDT 12-09 02:40 → 8WST 12-09 03:53
PROVIDERS: ADMIT Internal Medicine; ATTEND Internal Medicine
DX: K64.8 Other hemorrhoids (principal); E43 Unspecified severe protein-calorie malnutrition; E87.1 Hypo-osmolality and hyponatremia; J90 Pleural effusion, not elsewhere classified; Z68.1 Body mass index [BMI] 19.9 or less, adult; D64.9 Anemia, unspecified; F03.90 Unspecified dementia, unspecified severity, without behavioral disturbance, psychotic disturbance, mood disturbance, and anxiety; E83.52 Hypercalcemia; E87.5 Hyperkalemia; E83.39 Other disorders of phosphorus metabolism; R13.10 Dysphagia, unspecified; R56.9 Unspecified convulsions; I12.9 Hypertensive chronic kidney disease with stage 1 through stage 4 chronic kidney disease, or unspecified chronic kidney disease; E11.22 Type 2 diabetes mellitus with diabetic chronic kidney disease; Z86.73 Personal history of transient ischemic attack (TIA), and cerebral infarction without residual deficits; Z79.01 Long term (current) use of anticoagulants; Z87.440 Personal history of urinary (tract) infections; Z93.1 Gastrostomy status; N18.30 Chronic kidney disease, stage 3 unspecified
CPT/HCPCS: 36415; 36600; 71045; 76770; 80048; 80053; 80076; 81003; 82375; 82805; 82962; 83540; 83550; 83605; 83735; 84100; 84132; 85025; 85044; 86850; 86900; 93005; 93970; 99291; C9113; J0696; J1650; J1815; J1940; J1956; J2543; J3490; J7030; J7040; J7060; J7120